=== PATIENT | male | born 1955 | race Caucasian/White ===

== ENCOUNTER → 2020-07-09 | Day surgery (SDC) | payer MEDICARE, BC ==
[~2020-07-09] MED LIST: Ketamine 200 MG/20 ML MDV IV ONE; Lactated Ringers 1,000 ML IV SCH; Propofol 200 MG/20 ML SDV IV ONE; fentaNYL 100 MCG/2 ML SDV IV ONE
--- NOTE | 2020-07-12 08:41 | OR ---
DATE OF OPERATION: 07/09/2020 PREOPERATIVE DIAGNOSIS: COLON CANCER SCREENING. POSTOPERATIVE DIAGNOSIS: COLON CANCER SCREENING. SURGEON: Vazquez Farias MD PROCEDURE: FULL-LENGTH COLONOSCOPY. ANESTHESIA: MAC. COMPLICATIONS: None. SPECIMEN: None. FINDINGS: 1. Essentially normal full-length colonoscopy. 2. Minimal sigmoid diverticulosis. RECOMMENDATIONS: Followup colonoscopy every 10 years. INDICATIONS: Patient was seen for a Welcome to [employer] physical. He is due for a screening exam. DESCRIPTION OF PROCEDURE: The patient was prepped and draped, placed in the left lateral decubitus position. A lubricated Olympus colonoscope was inserted and easily advanced to the cecum. Direct visualization of the ileocecal valve and appendiceal orifice was accomplished. The bowel prep was excellent. Upon withdrawal, throughout the entire length of the colon, I could find no signs of polyps, masses, ulceration, or bleeding sites. No vascular abnormalities or signs of colitis. No significant diverticulosis. There may have been some very mild diverticular disease in the sigmoid, but minimal at best. The rectal vault appeared benign. Retroflexion of scope in the rectum showed no anal lesions. Air was suctioned, scope removed without complication. LORENZA/PATRICIA /[id number]
== END ==
LOC: CC.SDS 08:57
PROVIDERS: ATTEND Family Medicine
DX: Z12.11 Encounter for screening for malignant neoplasm of colon (principal); K57.30 Diverticulosis of large intestine without perforation or abscess without bleeding; E78.5 Hyperlipidemia, unspecified; N40.1 Benign prostatic hyperplasia with lower urinary tract symptoms; R35.1 Nocturia; Z79.899 Other long term (current) drug therapy
CPT/HCPCS: G0121; J2704; J3010; J7120